=== PATIENT | male | born 1995 | race Caucasian/White ===

== ENCOUNTER 2020-12-27 16:59 | Emergency (ER) | payer OTHER ==
[2020-12-27] MEDS ORDERED: Bacitracin Oint 1 GM U/D Packet TOP ONE (18:25)
--- NOTE | 2020-12-27 18:52 | EDM.PDOC ---
ED HPI GENERAL MEDICAL PROBLEM - General Chief Complaint: Laceration Stated Complaint: CUT R WRIST Time Seen by Provider: 12/27/20 18:25 Source of Information: Reports: Patient - History of Present Illness INITIAL COMMENTS - FREE TEXT/NARRATIVE: Vladimir is a 25-year-old male presenting to the ED for evaluation of a laceration to his right forearm that occurred today when he was working with sheet metal. Patient was cutting a piece of sheet metal in the rain and it slipped causing an incision on the volar aspect of the distal right forearm. The laceration measures 4.2 cm and is stellate. Patient reports that he is up-to-date on his tetanus as he received all his vaccinations when he left the 2 years ago. He denies any distal numbness or tingling. There is no impairment of range of motion. Right Arm Pain Score (Numeric/FACES): 3 - Related Data Allergies Allergy/AdvReac Type Severity Reaction Status Date / Time No Known Allergies Allergy Verified 12/27/20 18:17 Home Meds: Home Meds NK [No Known Home Meds] 12/27/20 [History] Past Medical History - Past Surgical History HEENT Surgical History: Reports: Adenoidectomy, Tonsillectomy Social & Family History - Tobacco Use Tobacco Use Status *Q: Never Tobacco User - Caffeine Use Caffeine Use: Reports: Coffee - Recreational Drug Use Recreational Drug Use: No ED ROS GENERAL - Review of Systems Review Of Systems: See Below Constitutional: Reports: No Symptoms HEENT: Reports: No Symptoms Respiratory: Reports: No Symptoms Cardiovascular: Reports: No Symptoms Endocrine: Reports: No Symptoms GI/Abdominal: Reports: No Symptoms : Reports: No Symptoms Musculoskeletal: Reports: Other (Right forearm pain secondary to a laceration) Skin: Reports: No Symptoms, Wound (4.2 cm laceration right forearm) Neurological: Reports: No Symptoms Psychiatric: Reports: No Symptoms Hematologic/Lymphatic: Reports: No Symptoms Immunologic: Reports: No Symptoms ED EXAM, SKIN/RASH Exam: See Below Exam Limited By: No Limitations General Appearance: Alert, No Apparent Distress Peripheral Pulses: 2+: Radial (R) Extremities: Normal Range of Motion, Other (Mild tenderness around the area of the laceration.) Neurological: Alert, Oriented, Normal Cognition, No Motor/Sensory Deficits Skin: Warm, Dry, Wound/Incision (450 cm laceration on the volar distal right forearm. The lesion is stellate and gaps widely. It is through the epidermis and in sections or through the dermis as well.) Location, Skin: Upper Extremity, Right Characteristics: Linear (Stellate) Lymphatic: No Adenopathy ED SKIN PROCEDURES - Laceration/Wound Repair Right Distal Arm Appearance: Subcutaneous Distal NVT: Neuro & Vascular Intact Anesthetic Type: Local Local Anesthesia - Lidocaine (Xylocaine): 1% Plain Local Anesthetic Volume: 3cc Skin Prep: Other (Soap and water) Exploration/Debridement/Repair: Wound Explored, In a Bloodless Field, Explored to Base Closed with: Sutures Lac/Wound length In cm: 4.2 Suture Size: 4-0 # of Sutures: 10 Suture Type: Nylon, Interrupted Sterile Dressing Applied: Provider Tetanus Status Addressed: Yes Complications: No Course - Vital Signs Last Recorded V/S: Last Vital Signs Temp 36.8 C 12/27/20 18:16 Pulse 70 12/27/20 18:16 Resp 16 12/27/20 18:16 BP 134/84 12/27/20 18:16 Pulse Ox 99 12/27/20 18:16 - Orders/Labs/Meds Meds: Medications Discontinued Medications Generic Name Dose Route Start Last Admin Trade Name Freq PRN Reason Stop Dose Admin Bacitracin 1 dose 12/27/20 18:25 Bacitracin Oint 1 Gm U/D Packet TOP 12/27/20 18:26 ONETIME ONE Lidocaine HCl 5 ml 12/27/20 18:25 Lidocaine 1% 5 Ml Sdv INJECT 12/27/20 18:26 ONETIME ONE - Re-Assessments/Exams Free Text/Narrative Re-Assessment/Exam: 12/27/20 18:51 Vladimir had a 4.2 cm laceration on the distal right volar forearm. This was anesthetized using lidocaine 1% requiring 3 cc and then closed using 4-0 Ethilon requiring 10 simple interrupted sutures. Was good coaptation of the wound edges. A light coating of bacitracin was applied over through the wound and a nonstick Telfa pad was secured using Coban. Patient will need to have the sutures removed in 10 days which can be done at the clinic. Indications to return to the ED were discussed. There is no need for antibiotics at this time. All questions were answered prior to discharge. Departure - Departure Time of Disposition: 18:52 Disposition: Home, Self-Care 01 Condition: Good Clinical Impression: Laceration of forearm, right Qualifiers: Encounter type: initial encounter Qualified Code(s): S51.811A - Laceration without foreign body of right forearm, initial encounter - Discharge Information Instructions: Laceration Care, Adult Referrals: PCP,None [Primary Care Provider] - Care Plan Goals: Make sure to apply a light coating of bacitracin to the wound once daily with bandage change. Keep the wound clean and dry for the next 24 hours. I have provided you a work note taking you off work tomorrow. Watch for any signs of infection at which time we would start you on antibiotics. Sepsis Event Note (ED) - Evaluation Sepsis Screening Result: No Definite Risk - Focused Exam Vital Signs: Vital Signs Temp Pulse Resp BP Pulse Ox 12/27/20 18:16 36.8 C 70 16 134/84 99 12/27/20 18:07 36.8 C 70 16 134/84 99 - Problem List & Annotations (1) Laceration of forearm, right SNOMED Code(s): 52378859628523109 Code(s): S51.811A - LACERATION W/O FOREIGN BODY OF RIGHT FOREARM, INIT ENCNTR Status: Acute Priority: Medium Current Visit: Yes Qualifiers: Encounter type: initial encounter Qualified Code(s): S51.811A - Laceration without foreign body of right forearm, initial encounter - Problem List Review Problem List Initiated/Reviewed/Updated: Yes
== END 2020-12-27 19:23 | disposition home or self-care (01) ==
LOC: JP.ED 16:59
DX: S51.811A Laceration without foreign body of right forearm, initial encounter (principal); W26.8XXA Contact with other sharp object(s), not elsewhere classified, initial encounter; Y99.0 Civilian activity done for income or pay
CPT/HCPCS: 12002; 99282; 99282-25